=== PATIENT | female | born 1945 | race Caucasian/White ===

== ENCOUNTER 2019-10-24 16:05 | Outpatient (CLI) | payer OTHER, SELFPAY | END 2019-10-24 16:06 | disposition home or self-care (01) | PROVIDERS: PCP Emergency Medicine; Visit Provider Emergency Medicine | DX: R61 Generalized hyperhidrosis (principal) | CPT/HCPCS: 36415; 84443 ==

== ENCOUNTER 2020-03-13 15:13 | Emergency (ER) | payer OTHER, SELFPAY ==
--- NOTE | 2020-03-13 15:24 | ED.FEMALEGU ---
HPI - Female Genitourinary General Chief complaint: Urogenital-Female Stated complaint: UTI Time Seen by Provider: 03/13/20 15:25 Source: patient and RN notes reviewed Mode of arrival: ambulatory Limitations: no limitations History of Present Illness HPI Narrative: 75-year-old female presents with concern for possible urinary tract infection. Reports symptoms started overnight with dysuria, frequency, urgency, low back discomfort. She denies fever, abdominal pain, nausea, vomiting. Denies any intervention. MD elicited complaint: UTI Related Data Home Medications Medication Instructions Recorded Confirmed cholecalciferol (vitamin D3) 50 2,000 unit PO DAILY 06/07/19 mcg (2,000 unit) capsule valacyclovir 500 mg tablet 500 mg PO BID tablet 06/07/19 albuterol sulfate 90 mcg/actuation See Rx Instructions .ROUTE 10/22/19 aerosol inhaler .COMPLEX gm fluticasone propion-salmeterol INHALATION 03/13/20 [Wixela Inhub] Allergies Allergy/AdvReac Type Severity Reaction Status Date / Time Sulfa (Sulfonamide Allergy Unknown Verified 04/07/17 10:46 Antibiotics) Review of Systems Review of Systems: Narrative: CONSTITUTIONAL: Denies malaise, chills, sweats, or fever. CARDIOVASCULAR: Denies chest pain, palpitations, or edema. RESPIRATORY: Denies cough or dyspnea. GASTROINTESTINAL: Denies abdominal pain, nausea, vomiting, diarrhea, bloody, or mucous stools. GENITOURINARY: Reports dysuria frequency, urgency. Denies hematuria. MUSCULOSKELETAL: Reports low back pain. Denies myalgia. All systems reviewed & are unremarkable except as noted in HPI and below PMFSH Past Medical History Medical History (Updated 03/13/20 @ 15:37 by Katty Munoz NP) COPD (chronic obstructive pulmonary disease) GERD (gastroesophageal reflux disease) HLD (hyperlipidemia) Family History Family History Mother Cerebrovascular accident, Onset Age: 93 Sibling Malignant neoplasm of prostate Father Family history of diabetes mellitus in first degree relative, Onset Age: 76 Social History Social History Smoking status: Never smoker Alcohol intake: current Comments At time of signature, agree with nursing past medical, surgical, social and family history. There is no relevant family history pertinent to the presenting complaint Exam Narrative: Exam Narrative: GENERAL: Well-appearing, well-nourished, and in no acute distress. HEAD: Normocephalic. EYES: PERRLA, conjunctivae clear. NECK: Supple. No lymphadenopathy CHEST: Clear to auscultation. No respiratory distress. HEART: Regular rate and rhythm. No murmur heard. Normal peripheral pulses. ABDOMEN: Soft, nontender upon palpation, nondistended, normal active bowel sounds, no palpable or pulsatile masses, no guarding. No CVA tenderness SKIN: Warm, dry, no rash. NEURO: Alert and oriented x3. PSYCH: Normal mood and affect Course Course Emergency Course: Patient is aware of diagnosis, understands and agrees to treatment plan. Anticipatory guidance given. Patient agrees to follow-up as directed and is aware of reasons to seek care at the emergency department. Portions of this record may have been created with voice recognition software Vital Signs Vital signs: Vital Signs Temperature 97.9 F 03/13/20 15:25 Pulse Rate 82 03/13/20 15:25 Respiratory Rate 18 03/13/20 15:25 Blood Pressure 150/92 H 03/13/20 15:25 Pulse Oximetry 97 03/13/20 15:25 Temperature 97.9 F 03/13/20 15:25 Pulse Rate 82 03/13/20 15:25 Respiratory Rate 18 03/13/20 15:25 Blood Pressure 150/92 H 03/13/20 15:25 Pulse Oximetry 97 03/13/20 15:25 Reviewed. MDM - Female Genitourinary MDM Narrative Medical decision making narrative: Exam findings and UA show no acute concerns or changes; patient is non-toxic appearing and is in no di
[2020-03-13 15:25] VITALS: BP 150/92; PULSE 82; RESP 18; TEMP 36.6; O2SAT 97
== END 2020-03-13 15:45 | disposition home or self-care (01) ==
PROVIDERS: Emergency Provider Nurse Practitioner; PCP Emergency Medicine
DX: R30.0 Dysuria (principal); R35.0 Frequency of micturition; R39.15 Urgency of urination; J44.9 Chronic obstructive pulmonary disease, unspecified; K21.9 Gastro-esophageal reflux disease without esophagitis; E78.5 Hyperlipidemia, unspecified
CPT/HCPCS: 81003; 87077; 87086; 87088; 87186; 99213; G0463

== ENCOUNTER 2020-07-08 08:56 | Outpatient (CLI) | payer OTHER, SELFPAY ==
--- NOTE | ~2020-07-08 | DEXA_ITS ---
Bone Density Report Name: Linsey Quinn Age: 75 Sex: Female Ethnicity: White Date of : 1945 Indication: postmenopausal; parental hip fracture; height loss; asthma or emphysema; hysterectomy; Referring Provider: RO FALK Study: Bone densitometry was performed. Exam Date: July 08, 2020 Accession number: [id number] Bone Density: Region BMD T-score Z-score Classification AP Spine (L1-L4) 0.944 -0.9 1.6 Normal Femoral Neck (Left) 0.648 -1.8 0.4 Osteopenia Total Hip (Left) 0.825 -1.0 1.0 Normal Total Hip Bilateral Avg 0.828 -0.9 1.0 Normal Femoral Neck (Right) 0.627 -2.0 0.2 Osteopenia Total Hip (Right) 0.830 -0.9 1.0 Normal World Health Organization criteria for BMD impression classify patients as: Normal (T-score at or above -1.0), Osteopenia (T-score between -1.0 and -2.5), or Osteoporosis (T-score at or below -2.5). 10-year Fracture Risk(1): Major Osteoporotic Fracture 24% Hip Fracture 14% Reported Risk Factors: [place] (), Neck BMD=0.627, BMI=33.3, parental fracture (1) FRAX(R) Version 3.08. Fracture probability calculated for an untreated patient. Fracture probability may be lower if the patient has received treatment. Clinical Information Provided by Patient: Parent has had a hip fracture Has used the following medications: Vitamin D Has the following medical conditions: Asthma or Emphysema, Hysterectomy Patient maximum height was 65.5 Menopause Age: 48 Does not regularly consume dairy products Onset of menses at age 10 Number of children 3 Impression: The patient has low bone mass, based on the Right Femoral Neck T-score. The patient has an estimated ten-year risk of hip fracture of 14% and an estimated ten-year risk of major fracture of 24%, based on the WHO FRAX algorithm. The patient has risk factors, including: parental hip fracture. Discussion: BONE DENSITY IS LOW AT ONE OR MORE SKELETAL SITES. THE PATIENT'S BMD AND CLINICAL RISK FACTORS CONTRIBUTE TO THIS PATIENT'S HIGH RISK OF FRACTURE. This patient's lowest T-score is low at one or more skeletal sites. It meets the World Health Organization's (WHO) criteria for ?low bone mass? (T-score between -1.0 and -2.5). The patient's 10-year risk of hip fracture and 10 year risk of a major osteoporotic fracture as calculated by FRAX exceeds the threshold where pharmacological therapy is recommended by the National Osteoporosis Foundation (NOF). However, all treatment decisions require clinical judgment and consideration of individual patient factors, including patient preferences, comorbidities, previous drug use, risk factors not captured in the FRAX model (e.g., frailty, falls, vitamin D deficiency, increased bone turnover, interval significant decline in bone density) and possible under or overestimation of fracture ris
== END 2020-07-08 08:57 | disposition home or self-care (01) ==
LOC: ANHIMG 08:57
PROVIDERS: PCP Emergency Medicine; Visit Provider Emergency Medicine
DX: N95.9 Unspecified menopausal and perimenopausal disorder (principal); Z78.0 Asymptomatic menopausal state; M85.852 Other specified disorders of bone density and structure, left thigh; M85.851 Other specified disorders of bone density and structure, right thigh
CPT/HCPCS: 77080

== ENCOUNTER 2020-07-17 08:17 | Outpatient (CLI) | payer OTHER, SELFPAY ==
--- NOTE | ~2020-07-17 | MM_ITS ---
EXAMINATION: MM screening [facility] w dylan HISTORY: Screening mammogram TECHNIQUE: Craniocaudal and mediolateral oblique 3-D tomosynthesis images were obtained and synthetic 2-D images were generated. CAD analysis was submitted and interpreted. COMPARISON: 12/13/2016 diagnostic right digital mammogram and limited right breast ultrasound 11/15/2016, 07/29/2014 bilateral digital screening mammogram examinations BREAST PARENCHYMAL COMPOSITION: There are scattered areas of fibroglandular density. FINDINGS: There is no evidence of suspicious mass, calcification, or architectural distortion to sugg est malignancy in either breast. There has been no suspicious interval change. IMPRESSION: 1. No mammographic evidence of malignancy. 2. Recommend routine screening mammography in one year. BI-RADS Category 1: Negative Reviewed, dictated and finalized at location A. [facility] OFFICE MANAGER
== END 2020-07-17 08:18 | disposition home or self-care (01) ==
LOC: ANHIMG 08:19
PROVIDERS: PCP Emergency Medicine; Visit Provider Emergency Medicine
DX: Z12.31 Encounter for screening mammogram for malignant neoplasm of breast (principal)
CPT/HCPCS: 77063; 77067

== ENCOUNTER 2021-02-24 13:43 | Emergency (ER) | payer OTHER, SELFPAY ==
[2021-02-24 13:56] VITALS: BP 141/79; PULSE 80; RESP 16; TEMP 36.4; O2SAT 97
--- NOTE | 2021-02-24 15:28 | ED.URI ---
HPI - URI/Sore Throat General Chief Complaint: Upper Respiratory Infection Stated Complaint: COUGH Source: patient and RN notes reviewed Limitations: no limitations History of Present Illness HPI Narrative: The vaccinated patient, a non-smoker/nondrinke several meds including for COPD/RAD, presents with a 1 week history of scant cough associated with mild intermittent, somewhat positional wheezing. No fever, earache, sputum changes, sore throat, calf pain/edema; no loss of taste/smell, CP, vomiting/diarrhea, SOB. Her baseline inhaler use is typically weekly or less, no recent hospitalizations or steroids; symptoms are mild worse at night. Related Data Home Medications Medication Instructions Recorded Confirmed cholecalciferol (vitamin D3) 50 2,000 unit PO DAILY 06/07/19 01/28/21 mcg (2,000 unit) capsule albuterol sulfate 90 mcg/actuation See Rx Instructions .ROUTE 10/22/19 01/28/21 aerosol inhaler .COMPLEX gm cyclosporine [Restasis] drp 02/24/21 doxycycline hyclate 02/24/21 fluticasone propion-salmeterol INHALATION 02/24/21 [Wixela Inhub] spironolactone 02/24/21 Allergies Allergy/AdvReac Type Severity Reaction Status Date / Time Sulfa (Sulfonamide Allergy Unknown unknown Verified 01/28/21 10:48 Antibiotics) Review of Systems Review of Systems: General/Constitutional: No weight loss,fever Eyes: N0: Redness,discharge Ears/Nose/Throat: No: Epistaxis,ear discharge Respiratory: Denies: Hemoptysis Gastrointestinal: No Vomiting, Bleeding-rectal Skin: No Lumps, eruption Neurologic: No Focal Weakness,Sz Hematologic: Denies: Petechiae/Purpura Psychiatric: No: Suicida ideationl All Other Systems: Reviewed and Negative [facility] Past Medical History Medical History (Updated 02/24/21 @ 15:31 by Suleiman Jarrell MD) COPD (chronic obstructive pulmonary disease) GERD (gastroesophageal reflux disease) HLD (hyperlipidemia) Family History Family History Mother Cerebrovascular accident, Onset Age: 93 Sibling Malignant neoplasm of prostate Father Family history of diabetes mellitus in first degree relative, Onset Age: 76 Social History Social History Smoking status: Never smoker Alcohol intake: current Exam Narrative: General Appearance: Well appearing, Well nourished EYE: PERRLA, Conjunctiva clear Ears: Auditory canal normal, TM normal Nose: Rhinorrhea, Mucousal erythema Mouth/Throat: MM moist, Uvula midline, Pharyngeal erythema Neck: Supple, No adenopathy Respiratory: No respiratory distress, BS equal decreased at bases, mostly CTA with fine expiratory wheezing on forced expiration Cardiovascular: RRR, No JVD Musculoskeletal: Non tender, Normal strength Skin: Warm, Dry Neurological: A&O x3, CN II-XII intact Psychiatric: Normal mood, Normal affect Course Vital Signs Vital signs: Vital Signs Temperature 97.6 F 02/24/21 13:56 Pulse Rate 80 02/24/21 13:56 Respiratory Rate 16 02/24/21 13:56 Blood Pressure 141/79 H 02/24/21 13:56 Pulse Oximetry 97 02/24/21 13:56 Temperature 97.6 F 02/24/21 13:56 Pulse Rate 80 02/24/21 13:56 Respiratory Rate 16 02/24/21 13:56 Blood Pressure 141/79 H 02/24/21 13:56 Pulse Oximetry 97 02/24/21 13:56 MDM - URI/Sore Throat Lab Data Labs: Lab Results 02/24/21 Range/Units 14:40 POC SARS CoV-2 Ag Negative (Negative) Discharge Plan Discharge Clinical Impression: Upper respiratory infection Patient Disposition: Home, Self-Care Condition: Stable Prescriptions: New codeine-guaifenesin 10-100 mg/5 mL liquid 7.5 ml PO Q6H PRN (Reason: cough) Qty: 118 RF: 0 cefuroxime axetil 500 mg tablet 500 mg PO Q12H Qty: 14 RF: 0 prednisone 20 mg tablet 60 mg PO DAILY Qty: 9 RF: 0 albuterol sulfate [Ventolin HFA] 90 mcg/actuation
== END 2021-02-24 15:40 | disposition home or self-care (01) ==
PROVIDERS: Emergency Provider Emergency Medicine; PCP Emergency Medicine
DX: J06.9 Acute upper respiratory infection, unspecified (principal); Z20.822 Contact with and (suspected) exposure to COVID-19; J44.9 Chronic obstructive pulmonary disease, unspecified; K21.9 Gastro-esophageal reflux disease without esophagitis; E78.5 Hyperlipidemia, unspecified
CPT/HCPCS: 87426; 99213; C9803; G0463

== ENCOUNTER 2021-09-01 15:27 | Outpatient (CLI) | payer OTHER, SELFPAY ==
--- NOTE | ~2021-09-01 | MM_ITS ---
EXAMINATION: MM screening [facility] BI w dylan HISTORY: Screening mammogram TECHNIQUE: Craniocaudal and mediolateral oblique 3-D tomosynthesis images were obtained and synthetic 2-D images were generated. CAD analysis was submitted and interpreted. COMPARISON: 07/17/2020, 12/13/2016, 11/15/2016, 07/29/2014 BREAST PARENCHYMAL COMPOSITION: There are scattered areas of fibroglandular density. FINDINGS: There is no suspicious mass, calcification, or architectural distortion to suggest malignan cy in either breast. There has been no suspicious interval change. IMPRESSION: 1. No mammographic evidence of malignancy. 2. Recommend routine screening mammography in one year. BI-RADS Category 1: Negative Reviewed, dictated and finalized at location A.
== END 2021-09-01 15:28 | disposition home or self-care (01) ==
LOC: ANHIMG 15:28
PROVIDERS: PCP Emergency Medicine; Visit Provider Emergency Medicine
DX: Z12.31 Encounter for screening mammogram for malignant neoplasm of breast (principal)
CPT/HCPCS: 77063; 77067

== ENCOUNTER 2021-12-08 02:07 | Day surgery (SDC) | payer OTHER, SELFPAY ==
[2021-11-23 14:43] VITALS: BMI 31.6
[2021-12-08 09:12] VITALS: BP 153/78; PULSE 68; RESP 18; TEMP 36.3; O2SAT 94
[2021-12-08] MEDS: LACTATED RINGERS 1,000 ML 150 ML IV CONT (09:22)
--- NOTE | 2021-12-08 09:38 | WPDANESEPPF ---
Anes - Initial Pre Proc Eval Procedure: Operation Date: 12/08/21 10:30 Proposed Procedures p Colonoscopy - Minor Coronado MD Date/Time: 12/08/21 09:38 Surgeon: Minor Coronado MD Pre Op Diagnosis: gastroenteritis colitis Patient Data Age: 76 Gender: F Height: 1.6 m Weight: 81 kg Last Vital Signs Temp 97.4 F L 12/08/21 09:12 Pulse 68 12/08/21 09:12 Resp 18 12/08/21 09:12 BP 153/78 H 12/08/21 09:12 Pulse Ox 94 12/08/21 09:12 O2 Del Method Room Air 12/08/21 09:12 Allergies Allergy/AdvReac Type Severity Reaction Status Date / Time Sulfa (Sulfonamide Allergy Unknown unknown Verified 12/08/21 09:11 Antibiotics) Home Medications Medication Instructions Recorded Confirmed Type fluticasone 250 mcg-salmeterol 50 See Rx Instructions .Route 02/23/21 12/08/21 Rx mcg/dose blistr powdr for .COMPLEX ##180 inhalation (Wixela Inhub) albuterol sulfate 90 mcg/actuation 2 puff inhalation QID PRN 02/24/21 12/08/21 Rx aerosol inhaler (Ventolin HFA) shortness of breath or wheezing #8.5 grams fluticasone propionate 50 See Rx Instructions .Route 07/13/21 12/08/21 Rx mcg/actuation nasal .COMPLEX #16 mL spray,suspension sertraline 50 mg tablet (Zoloft) 50 mg PO DAILY #90 tabs 10/02/21 12/08/21 Rx valacyclovir 500 mg tablet See Rx Instructions .Route 10/12/21 12/08/21 Rx .COMPLEX #180 tabs famotidine 40 mg tablet (Pepcid) 40 mg PO DAILY #90 tabs 10/14/21 12/08/21 Rx sodium sul 1.479 gram-potas ch See Rx Instructions PO PER PKG DIR 10/16/21 12/08/21 Rx 0.188 gram-magnes sul 0.225 gram #24 tabs tablet (Sutab) alprazolam 0.5 mg tablet (Xanax) 0.5 mg PO HS 06/20/22 07/05/22 History atorvastatin 10 mg tablet 10 mg PO DAILY 11/23/21 12/08/21 History loperamide 2 mg capsule 2 mg PO PRN PRN Diarrhea 11/23/21 12/08/21 History Patient hx anesthesia problems: none Family hx anesthesia problems: none Results Review: All pre-operative results and documents have been reviewed as part of the pre-operative evaluation. [facility] Past Medical History Medical History COPD (chronic obstructive pulmonary disease) GERD (gastroesophageal reflux disease) HLD (hyperlipidemia) Family History Family History Mother Cerebrovascular accident, Onset Age: 93 Sibling Malignant neoplasm of prostate Father Family history of diabetes mellitus in first degree relative, Onset Age: 76 Social History Social History Smoking status: Never smoker Alcohol intake: current Substance use: never Substance use type: does not use Living arrangements: with family Spiritual care concerns: No Anes - Eval Final PreProcedure Day of Procedure 12/08/21 09:38 Patient weight: obese Heart: regular rate and rhythm Lungs: clear to auscultation Airway: Mallampati scale class II Neurological: alert and oriented Last oral intake: >/= 8 hours ASA classification: III Emergent: no Anesthetic plan: proceed Anesthesia type and monitoring: general GIVS and standard monitoring Results Review: All pre-operative results and documents have been reviewed as part of the pre-operative evaluation. Informed Consent: The patient's anesthetic plan and its attendant risks and benefits were discussed with the patient/family/POA. Questions were solicited and answers provided to the satisfaction of the patient/family/POA.
--- NOTE | 2021-12-08 09:51 | PM.HPGS ---
History of Present Illness History of Present Illness Consent: Risks, benefits, and alternatives have been discussed and questions answered. Patient agrees to proceed with procedure. Chief complaint: gastroenteritis colitis Narrative: Linsey Quinn is a 76 year old female with intermittent diarrhea for over a year, sometimes has to take imodium otherwise can not leave her house. Last colonoscopy 10 years ago and was normal. Stool studies negative for infection. Review of Systems Constitutional: Constitutional: Denies headache(s) and Denies weakness Eyes: Eyes: Denies blurry vision ENT: Reports Normal hearing present, Denies headache(s) and Denies neck pain Cardiovascular: Cardiovascular: Denies chest pain and Denies dyspnea Respiratory: Respiratory: Denies dyspnea Gastrointestinal: Gastrointestinal: Reports no additional gastrointestinal complaints Genitourinary: Genitourinary: Denies dysuria Musculoskeletal: Musculoskeletal: Denies neck pain Integumentary/Breasts: Skin/Breast: Denies dry skin Neurologic: Reports Normal hearing present, Denies headache(s) and Denies weakness Psychiatric: Psychiatric: Denies anxiety Endocrine: Endocrine: Denies change in body appearance Hematologic/Lymphatic: Hematologic/Lymphatic: Denies easy bleeding Allergic/Immunologic: Allergic/Immunologic: Denies urticaria PMFSH Past Medical History Medical History (Updated 12/08/21 @ 09:52 by Minor Coronado MD) Chronic diarrhea COPD (chronic obstructive pulmonary disease) GERD (gastroesophageal reflux disease) HLD (hyperlipidemia) Family History Family History Mother Cerebrovascular accident, Onset Age: 93 Sibling Malignant neoplasm of prostate Father Family history of diabetes mellitus in first degree relative, Onset Age: 76 Social History Social History Smoking status: Never smoker Alcohol intake: current Substance use: never Substance use type: does not use Living arrangements: with family Spiritual care concerns: No Meds Home Medications and Allergies Home Medications Medication Instructions Recorded Confirmed Type fluticasone 250 mcg-salmeterol 50 See Rx Instructions .Route 02/23/21 12/08/21 Rx mcg/dose blistr powdr for .COMPLEX ##180 inhalation (Wixela Inhub) albuterol sulfate 90 mcg/actuation 2 puff inhalation QID PRN 02/24/21 12/08/21 Rx aerosol inhaler (Ventolin HFA) shortness of breath or wheezing #8.5 grams fluticasone propionate 50 See Rx Instructions .Route 07/13/21 12/08/21 Rx mcg/actuation nasal .COMPLEX #16 mL spray,suspension sertraline 50 mg tablet (Zoloft) 50 mg PO DAILY #90 tabs 10/02/21 12/08/21 Rx valacyclovir 500 mg tablet See Rx Instructions .Route 10/12/21 12/08/21 Rx .COMPLEX #180 tabs famotidine 40 mg tablet (Pepcid) 40 mg PO DAILY #90 tabs 10/14/21 12/08/21 Rx sodium sul 1.479 gram-potas ch See Rx Instructions PO PER PKG DIR 10/16/21 12/08/21 Rx 0.188 gram-magnes sul 0.225 gram #24 tabs tablet (Sutab) alprazolam 0.5 mg tablet (Xanax) 0.5 mg PO HS 11/23/21 12/08/21 History atorvastatin 10 mg tablet 10 mg PO DAILY 11/23/21 12/08/21 History loperamide 2 mg capsule 2 mg PO PRN PRN Diarrhea 11/23/21 12/08/21 History Allergies Allergy/AdvReac Type Severity Reaction Status Date / Time Sulfa (Sulfonamide Allergy Unknown unknown Verified 12/08/21 09:11 Antibiotics) Vital Signs Vital Signs - 24 hr 12/08/21 09:12 Temperature 97.4 F L Pulse Rate 68 Respiratory Rate 18 Blood Pressure 153/78 H Pulse Oximetry 94 Oxygen Delivery Room Air Exam Const: General: comfortable and no acute distress HENMT: General nose exam: Normal nares present Eyes: General: appearance normal, both eyes and all related structures Neck: Neck: no JVD Resp: Auscultation: clear to ausculta
--- NOTE | 2021-12-08 09:56 | SUR.OPER ---
Left eye is red and appears irritated, pt reports she got soap in it the night prior.
[2021-12-08 10:12] VITALS: BP 140/77; PULSE 59; RESP 19; O2SAT 99
[2021-12-08 10:22] VITALS: BP 144/71; PULSE 56; RESP 19; O2SAT 98
[2021-12-08 10:32] VITALS: BP 147/76; PULSE 55; RESP 16; O2SAT 100
== END 2021-12-08 10:45 | disposition home or self-care (01) ==
PROVIDERS: PCP Emergency Medicine; Visit Provider Internal Medicine Gastroenterology
PROC: 0DJD8ZZ Inspection of Lower Intestinal Tract, Via Natural or Artificial Opening Endoscopic (ICD-10-PCS; CPT 45378; principal; 2021-12-08 10:30)
DX: Z12.11 Encounter for screening for malignant neoplasm of colon (principal); R19.7 Diarrhea, unspecified; K57.30 Diverticulosis of large intestine without perforation or abscess without bleeding; J44.9 Chronic obstructive pulmonary disease, unspecified; E78.5 Hyperlipidemia, unspecified; K21.9 Gastro-esophageal reflux disease without esophagitis; Z79.51 Long term (current) use of inhaled steroids
CPT/HCPCS: 45380; 88305; J2704; J7120

== ENCOUNTER 2021-12-12 12:05 | Emergency (ER) | payer OTHER, SELFPAY ==
[2021-12-12 12:44] VITALS: BP 115/78; PULSE 70; RESP 20; TEMP 36.6; O2SAT 99
--- NOTE | 2021-12-12 12:48 | ED.GENADULT ---
HPI - General Adult General Chief complaint: Eye Problems Stated complaint: Steven Su Time Seen by Provider: 12/12/21 12:48 Source: patient Mode of arrival: ambulatory Limitations: no limitations History of Present Illness HPI narrative: 76-year-old female patient presents to the [facility] with complaints of left eye irritation for the past week. Patient states that she got some shampoo in her eye about a week ago and thought that it would resolve on its own but every day it is gotten a little bit worse and continues to have some clear to yellow drainage, itching and irritation left eye as well as blurred vision. Denies wearing any contacts or any foreign bodies to the eye that she is aware of. Related Data Home Medications Medication Instructions Recorded Confirmed alprazolam 0.5 mg tablet (Xanax) 0.5 mg PO HS 11/23/21 12/08/21 atorvastatin 10 mg tablet 10 mg PO DAILY 11/23/21 12/08/21 loperamide 2 mg capsule 2 mg PO PRN PRN Diarrhea 11/23/21 12/08/21 Allergies Allergy/AdvReac Type Severity Reaction Status Date / Time Sulfa (Sulfonamide Allergy Unknown unknown Verified 12/08/21 09:11 Antibiotics) Review of Systems Review of Systems: CONSTITUTIONAL: Denies fever, chills, or sweats. EYES: Positive left eye visual changes, redness, and discharge x1 week ENT: Denies rhinorrhea, congestion, sore throat, or otalgia. CARDIOVASCULAR: Denies chest pain, palpitations, or edema. RESPIRATORY: Denies cough or dyspnea. GASTROINTESTINAL: Denies abdominal pain, nausea, vomiting, or diarrhea. GENITOURINARY: Denies dysuria or hematuria. SKIN: Denies rash or itching. MUSCULOSKELETAL: Denies back pain, joint pain, or myalgia. NEUROLOGIC: Denies headache, numbness, or weakness. PSYCHIATRIC: Denies anxiety or depression. [facility] Past Medical History Medical History Chronic diarrhea COPD (chronic obstructive pulmonary disease) GERD (gastroesophageal reflux disease) HLD (hyperlipidemia) Family History Family History Mother Cerebrovascular accident, Onset Age: 93 Sibling Malignant neoplasm of prostate Father Family history of diabetes mellitus in first degree relative, Onset Age: 76 Social History Social History Smoking status: Never smoker Alcohol intake: current Substance use: never Substance use type: does not use Spiritual care concerns: No Comments At the time of my signature I agree with nursing past medical history, surgical, social, and family history. There is no relevant family history pertinent to the presenting complaint. Exam Narrative: GENERAL: Well-appearing, well-nourished, and in no acute distress. HEAD: Normocephalic, atraumatic. EYES: PERRLA and EOMI. patient does have erythema noted to the sclera of the left eye. No periorbital swelling, warmth or present. Patient does have slight clear discharge noted with dried matting to the lashes. ENT: Nares clear, no rhinorrhea or epistaxis. Mucous membranes moist. NECK: Supple. No lymphadenopathy CHEST: Clear to auscultation. No respiratory distress. HEART: Regular rate and rhythm. No murmur heard. Normal peripheral pulses. ABDOMEN: Soft, nontender, nondistended, normal active bowel sounds. EXTREMITIES: Normal range of motion. No edema. SKIN: Warm, dry, no rash. NEURO: No focal deficits. Alert and oriented x3. Course Course Level of Care: Express Care Visit Vital Signs Vital signs: Vital Signs Temperature 36.6 C 12/12/21 12:44 Pulse Rate 70 12/12/21 12:44 Respiratory Rate 20 12/12/21 12:44 Blood Pressure 115/78 12/12/21 12:44 Pulse Oximetry 99 12/12/21 12:44 Oxygen Delivery Room Air 12/12/21 12:44 Temperature 36.6 C 12/12/21 12:44 Pulse Rate 70 12/12/21 12:44 Respiratory Rate 20 12/12/21 12:44 Blood Pressure
== END 2021-12-12 13:05 | disposition home or self-care (01) ==
PROVIDERS: Emergency Provider Nurse Practitioner Family; PCP Emergency Medicine
DX: H10.32 Unspecified acute conjunctivitis, left eye (principal); J44.9 Chronic obstructive pulmonary disease, unspecified; K21.9 Gastro-esophageal reflux disease without esophagitis; E78.5 Hyperlipidemia, unspecified
CPT/HCPCS: 99213; G0463

== ENCOUNTER 2022-01-03 06:42 | Emergency (ER) | payer OTHER, SELFPAY ==
[2022-01-03] VITALS (31 sets, daily range): BP systolic 142–189; BP diastolic 80–95; PULSE 58–93; RESP 9–20; TEMP 36.7; O2SAT 93–100
--- NOTE | ~2022-01-03 | XR_ITS ---
EXAMINATION: XR chest 1V portable DATE: 01/03/2022 08:03 INDICATION: Cough TECHNIQUE: frontal view of the chest was obtained. COMPARISON: None FINDINGS: Mild streaky opacities at the bilateral lung bases and favor atelectasis over pneumonia. No pulmonary edema, pleural effusion or pneumothorax. The cardiomediastinal silhouette is normal. IMPRESSION: 1. Mild streaky bibasilar atelectasis versus less likely pneumonia. Reviewed, dictated and finalized at location A.
[2022-01-03 06:58] LABS: Basophils Percent Auto 0.2 % (0.2-1.2); Eosinophils Percent Auto 0.2 % (0-4.4); Hematocrit 40.2 % (37.0-47.0); Hemoglobin 13.7 g/dL (12.0-15.0); Immature Granulocyte Absolute 0.05 K/mm3 (0.00-0.031); Immature Granulocyte Percent A 0.5 % (0-0.5); Lymphocytes Absolute Auto 2.83 K/mm3 (0.9-3.2); Lymphocytes Percent Auto 26.4 % (18.3-44.2); Mean Corpuscular HGB Conc 34.1 g/dl (32-36); Mean Corpuscular Hemoglobin 31.9 pg (26-34); Mean Corpuscular Volume 93.7 fl (80-100); Mean Platelet Volume 9.5 fl (7.4-10.4); Monocytes Absolute Auto 0.8 K/mm3 (0.1-0.6); Monocytes Percent Auto 7.7 % (2.6-8.5); Platelet Count Result 361 k/mm3 (150-375); Red Blood Count 4.29 M/mm3 (4.2-5.4); Red Cell Distribution Width 13.7 % (11.5-14.5); White Blood Count 10.7 K/mm3 (4.5-10.0)
[2022-01-03 07:08] LABS: Alanine Aminotransferase 38 U/L (6-35); Alkaline Phosphatase 99 U/L (38-126); Anion Gap 13 mmol/L (8-16); Aspartate Amino Transferase 29 U/L (14-36); Bilirubin,Total 0.5 mg/dL (0.2-1.3); Blood Urea Nitrogen 16 mg/dL (7-17); Calcium 9.3 mg/dL (8.4-10.2); Carbon Dioxide 27 mmol/L (22-30); Chloride 87 mmol/L (98-107); Estimated CRCL calculation 77 ml/min; Estimated Glomerular Filt Rate > 60; Glucose 145 mg/dL (65-110); Lipase 127 U/L (23-300); Potassium 4.3 mmol/L (3.4-5.0); Sodium 127 mmol/L (137-145)
--- NOTE | 2022-01-03 07:26 | ED.NAVMDI ---
HPI - Nausea/Vomiting/Diarrhea General Chief complaint: Nausea/Vomiting/Diarrhea Stated complaint: N/V Time Seen by Provider: 01/03/22 07:03 Source: RN notes reviewed History of Present Illness HPI Narrative: Patient presents emergency department from home for nausea and vomiting. Patient states that she was diagnosed with COVID-19 approximately 1 week ago. She states that she was placed on Paxlovid and took the medication with last dose on Tuesday she states that starting on Tuesday she began to feel bad again and subsequently yesterday developed nausea and vomiting she says she has had profuse nausea vomiting is been unable to keep anything down. She denies any fevers or chills chest pain shortness of breath or abdominal pain states she is not taking medication at home Related Data Home Medications Medication Instructions Recorded Confirmed atorvastatin 10 mg tablet 10 mg PO DAILY 11/23/21 12/08/21 loperamide 2 mg capsule 2 mg PO PRN PRN Diarrhea 11/23/21 12/08/21 Allergies Allergy/AdvReac Type Severity Reaction Status Date / Time Sulfa (Sulfonamide Allergy Unknown unknown Verified 01/03/22 06:49 Antibiotics) Review of Systems Review of Systems: Gen.: Denies fevers or chills reports COVID-19 ENT: Denies congestion Respiratory: Denies shortness of breath or cough CV: Denies chest pain or palpitations GI: See HPI Musculoskeletal: Denies back pain or muscle pain Neuro: Denies numbness, tingling, weakness or focal weakness Skin: Denies rash Except as documented, all other systems reviewed and negative [facility] Past Medical History Medical History Chronic diarrhea COPD (chronic obstructive pulmonary disease) GERD (gastroesophageal reflux disease) HLD (hyperlipidemia) Family History Family History Mother Cerebrovascular accident, Onset Age: 93 Sibling Malignant neoplasm of prostate Father Family history of diabetes mellitus in first degree relative, Onset Age: 76 Social History Social History Smoking status: Never smoker Alcohol intake: current Substance use: never Substance use type: does not use Spiritual care concerns: No Exam Narrative: APPEARANCE: No acute distress, nontoxic, resting in bed EYES: EOMI HEENT: Normocephalic, atraumatic, OMM RESPIRATORY: No respiratory distress Clear to auscultation bilaterally with no rhonchi wheezing or rales. CARDIOVASCULAR: Regular rate and rhythm without murmurs rubs or gallops. ABDOMINAL: Soft, nontender, nondistended, no rebound or guarding MUSCULOSKELETAl: Moves all extremities. No clubbing, cyanosis or edema. NEURO: Awake and alert. Following commands, speech normal, no focal deficits SKIN:: Warm, dry. No rashes lesions or abrasions PSYCHIATRIC: Normal affect/mood, Course Course Emergency Course: Patient states she is feeling much better at this time able to eat and drink Discussed with patient results of workup and diagnosis. Discussed need for follow-up with primary care, proper use of medication, and reasons to return to the emergency department. Patient understands and agrees to current treatment plan Vital Signs Vital signs: Vital Signs Temperature 98.1 F 01/03/22 06:46 Pulse Rate 68 01/03/22 06:46 Respiratory Rate 16 01/03/22 06:46 Blood Pressure 189/94 H 01/03/22 06:46 Pulse Oximetry 97 01/03/22 06:46 Oxygen Delivery Room Air 01/03/22 06:46 Temperature 98.1 F 01/03/22 06:46 Pulse Rate 68 01/03/22 06:46 Respiratory Rate 16 01/03/22 06:46 Blood Pressure 189/94 H 01/03/22 06:46 Pulse Oximetry 97 01/03/22 06:46 Oxygen Delivery Room Air 01/03/22 06:46 MDM - Nausea/Vomiting/Diarrhea Lab Data Result diagrams: 01/03/22 06:52 01/03/22 06:52 Labs: Lab Results 0
[2022-01-03 07:31] LABS: Appearance Urine Slightly Cloudy (Clear); Bilirubin Urine Negative (Negative); Blood Urine Negative (Negative); Color Urine Yellow (Yellow); Glucose Urine UA Negative (Negative); Ketones Urine Negative (Negative); Leukocyte Esterase Ur Negative LEU/UL (Negative); Nitrate Urine Negative (Negative); Protein Urine 2+ mg/dL (Negative); Specific Grav Ur 1.025 (1.001-1.035); Urobilinogen Urine 0.2 mg/dL (<2.0)
[2022-01-03 07:36] LABS: Bacteria Urine Trace /hpf; Mucus Urine Heavy /lpf; RBC Urine 0-2 /hpf (0-2); Squamous Epithelial Cell Urine Occasional /hpf (Few); WBC Urine 0-3 /hpf
[2022-01-03 07:54] LABS: Add Urine Microscopic? YES
[2022-01-03] MEDS: SODIUM CHLORIDE 0.9% IV 1,000 ML 999 ML IV CONT (08:05)
[2022-01-03] MEDS: FAMOTIDINE 20 MG/2 ML VIAL IV PUSH (08:05)
[2022-01-03] MEDS: ONDANSETRON INJ 4 MG/2 ML VIAL IV PUSH ×2 (08:05→10:08)
== END 2022-01-03 10:45 | disposition home or self-care (01) ==
PROVIDERS: Emergency Medicine; Emergency Provider Emergency Medicine; PCP Emergency Medicine
DX: U07.1 COVID-19 (principal); R11.2 Nausea with vomiting, unspecified; J44.9 Chronic obstructive pulmonary disease, unspecified; K21.9 Gastro-esophageal reflux disease without esophagitis; E78.5 Hyperlipidemia, unspecified; K52.9 Noninfective gastroenteritis and colitis, unspecified
CPT/HCPCS: 36415; 71045; 80053; 81001; 83690; 85025; 96365; 96375; 96376; 99284; J0131; J2405; J7030

== ENCOUNTER 2022-11-08 11:33 | Emergency (ER) | payer OTHER, SELFPAY ==
[2022-11-08 11:46] VITALS: BP 142/65; PULSE 71; RESP 12; TEMP 37.3; O2SAT 96
--- NOTE | 2022-11-08 11:59 | ED.FEMALEGU ---
HPI - Female Genitourinary General Chief complaint: Urogenital-Female Stated complaint: UTI infection Time Seen by Provider: 11/08/22 11:50 Source: patient Mode of arrival: ambulatory Limitations: no limitations History of Present Illness HPI Narrative: Ms. Quinn is a 77-year-old female patient presenting to the clinic today with complaints possible urinary tract infection. She reports that she just got back from vacation and was and water and was wearing a wet suit for long time. States that she is having burning, frequency and urgency with urination. Also reports some low back pain and chills. She denies any fever. Related Data Home Medications Medication Instructions Recorded Confirmed loperamide 2 mg capsule 2 mg PO PRN PRN Diarrhea 11/23/21 11/08/22 Allergies Allergy/AdvReac Type Severity Reaction Status Date / Time Sulfa (Sulfonamide Allergy Unknown unknown Verified 11/08/22 11:50 Antibiotics) Review of Systems Review of Systems: Pertinent positives per HPI. Patient denies any fever, chills, rash, headache, visual changes, dizziness, cough, shortness of breath, chest pain, palpitations, nausea, vomiting, diarrhea, constipation, abdominal pain, PMFSH Past Medical History Medical History Chronic diarrhea COPD (chronic obstructive pulmonary disease) GERD (gastroesophageal reflux disease) HLD (hyperlipidemia) Family History Family History Mother Cerebrovascular accident, Onset Age: 93 Sibling Malignant neoplasm of prostate Father Family history of diabetes mellitus in first degree relative, Onset Age: 76 Social History Social History Smoking status: Never smoker Alcohol intake: current Substance use: never Substance use type: does not use Living arrangements: with family Spiritual care concerns: No Comments At the time of my signature, I reviewed and agree with the nursing past medical, surgical, social, and family history. There is no relevant family history pertinent to the patient complaint. Exam Narrative: General: Well-developed, well nourished, in no apparent distress. Head: Normocephalic, atraumatic. Cardio: Regular rate and rhythm, s1 and s2 normal, no murmur appreciated. Resp: Clear to auscultation bilaterally, no rhonchi, rales, wheezing or rubs. Abdomen: Soft, pliable, bowel sounds present in all quadrants, mild tender to palpation over the urinary bladder, no organomegly, no CVAT tenderness. Course Course Emergency Course: Portions of this record may have been created with voice recognition software. Level of Care: Express Care Visit Vital Signs Vital signs: Vital Signs Temperature 37.3 C 11/08/22 11:46 Pulse Rate 71 11/08/22 11:46 Respiratory Rate 12 11/08/22 11:46 Blood Pressure 142/65 H 11/08/22 11:46 Pulse Oximetry 96 11/08/22 11:46 Oxygen Delivery Room Air 11/08/22 11:46 Temperature 37.3 C 11/08/22 11:46 Pulse Rate 71 11/08/22 11:46 Respiratory Rate 12 11/08/22 11:46 Blood Pressure 142/65 H 11/08/22 11:46 Pulse Oximetry 96 11/08/22 11:46 Oxygen Delivery Room Air 11/08/22 11:46 Vital signs reviewed MDM - Female Genitourinary MDM Narrative Medical decision making narrative: At the time of visit patient is resting comfortably on the exam table. Patient did take azo last night so perhaps the urine dip test is skewed. Patient was positive for nitrates, leukocytes, blood, and protein. Send for culture. Will place patient on ciprofloxacin. Supportive measures were discussed with the patient she voiced understanding discharge instructions agrees to treatment plan. Differential Diagnosis Differential diagnosis: Likely urinary tract infection and cystitis Lab Data Labs: Uri
== END 2022-11-08 12:07 | disposition home or self-care (01) ==
PROVIDERS: Emergency Provider Nurse Practitioner Family; PCP Emergency Medicine
DX: N39.0 Urinary tract infection, site not specified (principal); J44.9 Chronic obstructive pulmonary disease, unspecified; K21.9 Gastro-esophageal reflux disease without esophagitis; E78.5 Hyperlipidemia, unspecified
CPT/HCPCS: 81003; 87077; 87086; 87186; 99213; G0463

== ENCOUNTER 2023-09-09 16:08 | Emergency (ER) | payer OTHER, SELFPAY ==
[2023-09-09 16:40] VITALS: BP 161/77; PULSE 62; RESP 14; TEMP 36.2; O2SAT 99
--- NOTE | 2023-09-09 17:07 | ED.EAR ---
HPI - Ear Problem General Chief complaint: Ear Stated complaint: left ear pain Time Seen by Provider: 09/09/23 17:07 Source: patient Mode of arrival: ambulatory Limitations: no limitations History of Present Illness HPI Narrative: 78-year-old female presents with complaint of pain to bilateral ears, decreased hearing worse to left ear. Patient states that she recently flew to and from [place]. Had pain to both ears on plane to [place] and from [place]. Pain to left ear worse on way home and that is when decreased hearing started. Notice blood to left ear canal yesterday. Called her primary care physician who contacted and Ear Nose and Throat office but states no one called her back today. Afebrile. All systems reviewed and negative except as noted above. Related Data Allergies Allergy/AdvReac Type Severity Reaction Status Date / Time Sulfa (Sulfonamide AdvReac Mild Nausea Verified 09/09/23 16:47 Antibiotics) Review of Systems Review of Systems: CONSTITUTIONAL: Denies fever, chills, or sweats. EYES: Denies visual changes, redness, or discharge. ENT: Denies rhinorrhea, congestion, sore throat . Bilateral ear pain with decreased hearing. CARDIOVASCULAR: Denies chest pain, palpitations, or edema. RESPIRATORY: Denies cough or dyspnea. GASTROINTESTINAL: Denies abdominal pain, nausea, vomiting, or diarrhea. GENITOURINARY: Denies dysuria or hematuria. SKIN: Denies rash or itching. MUSCULOSKELETAL: Denies back pain, joint pain, or myalgia. NEUROLOGIC: Denies headache, numbness, or weakness. PSYCHIATRIC: Denies anxiety or depression. All other systems reviewed are negative, except as documented in HPI. [facility] Past Medical History Medical History Chronic diarrhea COPD (chronic obstructive pulmonary disease) GERD (gastroesophageal reflux disease) HLD (hyperlipidemia) Family History Family History Mother Cerebrovascular accident, Onset Age: 93 Sibling Malignant neoplasm of prostate Father Family history of diabetes mellitus in first degree relative, Onset Age: 76 Social History Social History Smoking status: Never smoker Alcohol intake: current Substance use: never Substance use type: does not use Do You Feel Safe in your Home?: Yes Lack of Transportation: YES Lack of Food: Never True Current Housing: I Have Housing Concerned About Future Housing: No Difficulty Paying Gas/Electric Bills: No Difficulty Paying for Meds: No Currently Unemployed: No Education: Associate Degree Difficulty w/ Childcare or Family Care: No Living arrangements: with family Spiritual care concerns: No Comments At time of signature, agree with nursing past medical, surgical, social and family history. There is no relevant family history pertinent to the presenting complaint. Exam Narrative: GENERAL: This is a well-nourished, well-developed patient, in no apparent distress. HEAD: normocephalic, atraumatic. EYES: PERRL. Sclera clear/white. Vision is grossly intact. EARS: External ears normal, Bilateral ear canals are very narrow. Small amount of cerumen to right ear canal, unable to evaluate right TM. Possible perforation to left TM with yellowish drainage, blood to ear canal. NOSE: External nose normal NECK: Neck supple, non-tender without lymphadenopathy, masses or thyromegaly. CARDIOVASCULAR: Regular rate and rhythm without murmurs, gallops, or rubs. RESPIRATORY: Clear to auscultation. Breath sounds equal bilaterally. No wheezes, rales, or rhonchi. SKIN: warm, Dry, intact with no suspicious lesions or rash, good texture and turgor. NEURO: awake, alert, and oriented to person, place and time. There were no obvious focal neurologic abnormalities. EXTREMITIES: No joint tenderness, effusion, or edema
== END 2023-09-09 17:24 | disposition home or self-care (01) ==
PROVIDERS: Emergency Provider Nurse Practitioner Family; PCP Emergency Medicine
DX: H72.92 Unspecified perforation of tympanic membrane, left ear (principal); H61.21 Impacted cerumen, right ear; J44.9 Chronic obstructive pulmonary disease, unspecified; K21.9 Gastro-esophageal reflux disease without esophagitis; E78.5 Hyperlipidemia, unspecified
CPT/HCPCS: 99213; G0463

== ENCOUNTER 2023-12-07 03:17 | Day surgery (SDC) | payer OTHER, SELFPAY ==
[2023-11-29 13:56] VITALS: BMI 31.6
[2023-12-07 13:05] VITALS: BP 148/75; PULSE 71; RESP 16; TEMP 36.5; O2SAT 95
[2023-12-07] MEDS: LACTATED RINGERS 1,000 ML 150 ML IV CONT (13:16)
--- NOTE | 2023-12-07 14:02 | WPDANESEPPF ---
Anes - Initial Pre Proc Eval Procedure: Operation Date: 12/07/23 14:30 Proposed Procedures p Esophagogastroduodenoscopy - Minor Coronado MD Date/Time: 12/07/23 14:02 Surgeon: Minor Coronado MD Pre Op Diagnosis: Dysphagia, GERD Patient Data Age: 78 Gender: F Height: 1.65 m Weight: 85.1 kg Last Vital Signs Temp 97.7 F 12/07/23 13:05 Pulse 71 12/07/23 13:05 Resp 16 12/07/23 13:05 BP 148/75 H 12/07/23 13:05 Pulse Ox 95 12/07/23 13:05 O2 Del Method Room Air 12/07/23 13:05 Allergies Allergy/AdvReac Type Severity Reaction Status Date / Time Sulfa (Sulfonamide AdvReac Mild Nausea Verified 12/07/23 13:03 Antibiotics) Home Medications Medication Instructions Recorded Confirmed Type valacyclovir 500 mg tablet See Rx Instructions .Route 03/22/23 11/29/23 Rx .COMPLEX #180 tabs sertraline 50 mg tablet See Rx Instructions .Route 09/14/23 11/29/23 Rx .COMPLEX #90 tabs famotidine 40 mg tablet See Rx Instructions .Route 09/19/23 11/29/23 Rx .COMPLEX #90 tabs atorvastatin 10 mg tablet See Rx Instructions .Route 10/19/23 11/29/23 Rx .COMPLEX #90 tabs FiberWell 4 g PO HS 11/29/23 11/29/23 History albuterol sulfate 90 mcg/actuation See Rx Instructions .Route 11/29/23 11/29/23 History aerosol inhaler .COMPLEX PRN Shortness Of Breath Or Wheezing apple cider vinegar 1 gummy BYMOUTH QA 11/29/23 11/29/23 History biotin 5,000 mcg chewable tablet 5,000 mcg PO QAM 11/29/23 11/29/23 History calcium carbonate-vitamin D3 500 1 cap PO HS 11/29/23 11/29/23 History mg (1,250 mg)-50 unit capsule diphenhydramine 25 1 tablet PO 11/29/23 11/29/23 History mg-acetaminophen 500 mg tablet (Acetaminophen PM) fluticasone 250 mcg-salmeterol 50 See Rx Instructions .Route 11/29/23 11/29/23 History mcg/dose blistr powdr for .COMPLEX PRN Shortness Of Breath inhalation (Wixela Inhub) Or Wheezing fluticasone propionate 50 See Rx Instructions .Route 11/29/23 11/29/23 History mcg/actuation nasal .COMPLEX PRN allergies spray,suspension ibuprofen 200 mg tablet (Advil) 400 mg PO QAM 11/29/23 11/29/23 History magnesium oxide 420 mg tablet 420 mg PO HS 11/29/23 11/29/23 History melatonin 10 mg tablet 10 mg PO HS 11/29/23 11/29/23 History turmeric root-kelsey root ext 1 cap PO HS 11/29/23 11/29/23 History alprazolam 0.5 mg tablet (Xanax) 0.5 mg PO HS #30 tabs 12/01/23 Rx Patient hx anesthesia problems: none Family hx anesthesia problems: none Results Review: All pre-operative results and documents have been reviewed as part of the pre-operative evaluation. [facility] Past Medical History Medical History Acute cystitis without hematuria Acute recurrent frontal sinusitis Anxiety Cataract Chronic diarrhea COPD (chronic obstructive pulmonary disease) COVID-19 Dysuria Fatigue GERD (gastroesophageal reflux disease) HLD (hyperlipidemia) Hyperglycemia Mild intermittent asthma with exacerbation Otalgia of both ears Perforated ear drum Postmenopausal Rhinosinusitis Right ear impacted cerumen Sarcoidosis Sinus congestion URI with cough and congestion Vitamin D deficiency Surgical History Surgical History History of partial hysterectomy Family History Family History Mother Cerebrovascular accident, Onset Age: 93 Sibling Malignant neoplasm of prostate Father Family history of diabetes mellitus in first degree relative, Onset Age: 76 Social History Social History Smoking status: Never smoker Alcohol intake: current Substance use: never Substance use type: does not use Do You Feel Safe in your Home?: Yes Lack of Transportation: YES Lack of Food: Never True Current H
--- NOTE | 2023-12-07 14:03 | PM.HPGS ---
History of Present Illness History of Present Illness Consent: Risks, benefits, and alternatives have been discussed and questions answered. Patient agrees to proceed with procedure. Chief complaint: Dysphagia, GERD Narrative: Linsey Quinn is a 78 year old female with diarrhea- negative colonoscopy including random bx, normal calprotecin/elastase in stool, also normal serology for celiac. GERD is controlled with medication. Noted some discomfort in chest after eating Review of Systems Review of Systems: All systems reviewed & are unremarkable except as noted in HPI and below PMFSH Past Medical History Medical History Acute cystitis without hematuria Acute recurrent frontal sinusitis Anxiety Cataract Chronic diarrhea COPD (chronic obstructive pulmonary disease) COVID-19 Dysuria Fatigue GERD (gastroesophageal reflux disease) HLD (hyperlipidemia) Hyperglycemia Mild intermittent asthma with exacerbation Otalgia of both ears Perforated ear drum Postmenopausal Rhinosinusitis Right ear impacted cerumen Sarcoidosis Sinus congestion URI with cough and congestion Vitamin D deficiency Surgical History Surgical History History of partial hysterectomy Family History Family History Mother Cerebrovascular accident, Onset Age: 93 Sibling Malignant neoplasm of prostate Father Family history of diabetes mellitus in first degree relative, Onset Age: 76 Social History Social History Smoking status: Never smoker Alcohol intake: current Substance use: never Substance use type: does not use Do You Feel Safe in your Home?: Yes Lack of Transportation: YES Lack of Food: Never True Current Housing: I Have Housing Concerned About Future Housing: No Difficulty Paying Gas/Electric Bills: No Difficulty Paying for Meds: No Currently Unemployed: No Education: Associate Degree Difficulty w/ Childcare or Family Care: No Living arrangements: with family Spiritual care concerns: No Meds Home Medications and Allergies Home Medications Medication Instructions Recorded Confirmed Type valacyclovir 500 mg tablet See Rx Instructions .Route 03/22/23 11/29/23 Rx .COMPLEX #180 tabs sertraline 50 mg tablet See Rx Instructions .Route 09/14/23 11/29/23 Rx .COMPLEX #90 tabs famotidine 40 mg tablet See Rx Instructions .Route 09/19/23 11/29/23 Rx .COMPLEX #90 tabs atorvastatin 10 mg tablet See Rx Instructions .Route 10/19/23 11/29/23 Rx .COMPLEX #90 tabs FiberWell 4 g PO 11/29/23 11/29/23 History albuterol sulfate 90 mcg/actuation See Rx Instructions .Route 11/29/23 11/29/23 History aerosol inhaler .COMPLEX PRN Shortness Of Breath Or Wheezing apple cider vinegar 1 gummy BYMOUTH [facility] 11/29/23 11/29/23 History biotin 5,000 mcg chewable tablet 5,000 mcg PO [facility] 11/29/23 11/29/23 History calcium carbonate-vitamin D3 500 1 cap PO 11/29/23 11/29/23 History mg (1,250 mg)-50 unit capsule diphenhydramine 25 1 tablet PO 11/29/23 11/29/23 History mg-acetaminophen 500 mg tablet (Acetaminophen PM) fluticasone 250 mcg-salmeterol 50 See Rx Instructions .Route 11/29/23 11/29/23 History mcg/dose blistr powdr for .COMPLEX PRN Shortness Of Breath inhalation (Wixela Inhub) Or Wheezing fluticasone propionate 50 See Rx Instructions .Route 11/29/23 11/29/23 History mcg/actuation nasal .COMPLEX PRN allergies spray,suspension ibuprofen 200 mg tablet (Advil) 400 mg PO [facility] 11/29/23 11/29/23 History magnesium oxide 420 mg tablet 420 mg PO 11/29/23 11/29/23 History melatonin 10 mg tablet 10 mg PO 11/29/23 11/29/23 History turmeric root-kelsey root ext 1 cap PO 11/29/23 11/29/23 History alprazolam 0.5 mg tablet (
[2023-12-07 14:21] VITALS: BP 112/59; PULSE 58; RESP 25; O2SAT 97
[2023-12-07 14:31] VITALS: BP 130/60; PULSE 53; RESP 22; O2SAT 96
[2023-12-07 14:41] VITALS: BP 130/79; PULSE 57; RESP 19; O2SAT 98
== END 2023-12-07 14:54 | disposition home or self-care (01) ==
PROVIDERS: PCP Emergency Medicine; Referring Provider Nurse Practitioner; Visit Provider Internal Medicine Gastroenterology
PROC: 0DJ08ZZ Inspection of Upper Intestinal Tract, Via Natural or Artificial Opening Endoscopic (ICD-10-PCS; CPT 43235; principal; 2023-12-07 14:30)
DX: K29.50 Unspecified chronic gastritis without bleeding (principal); K22.2 Esophageal obstruction; K44.9 Diaphragmatic hernia without obstruction or gangrene; J45.20 Mild intermittent asthma, uncomplicated; J44.9 Chronic obstructive pulmonary disease, unspecified; E78.5 Hyperlipidemia, unspecified; E55.9 Vitamin D deficiency, unspecified; Z79.51 Long term (current) use of inhaled steroids; E66.9 Obesity, unspecified; Z68.31 Body mass index [BMI] 31.0-31.9, adult
CPT/HCPCS: 43249; 43239; 88305; C1726; J2704; J7120

== ENCOUNTER 2024-03-22 14:53 | Outpatient (CLI) | payer OTHER, SELFPAY ==
--- NOTE | ~2024-03-22 | MM_ITS ---
EXAMINATION: MM screening roderick BI w dylan HISTORY: Screening TECHNIQUE: Craniocaudal and mediolateral oblique 3-D tomosynthesis images were obtained and synthetic 2-D images were generated. CAD analysis was submitted and interpreted. COMPARISON: Comparison to multiple prior studies sequentially, with oldest reviewed study dated 07/29. BREAST PARENCHYMAL COMPOSITION: Not dense: There are scattered areas of fibroglandular density. FINDINGS: There is no evidence of suspicious mass, calcification, or architectural distortion to sugg est malignancy in either breast. There has been no suspicious interval change. IMPRESSION: 1. No mammographic evidence of malignancy. 2. Recommend routine screening mammography in one year. BI-RADS Category 1: Negative Reviewed, dictated and finalized at location B.
== END 2024-03-22 14:54 | disposition home or self-care (01) ==
LOC: ANHIMG 14:54
PROVIDERS: PCP Emergency Medicine; Visit Provider Emergency Medicine
DX: Z12.31 Encounter for screening mammogram for malignant neoplasm of breast (principal)
CPT/HCPCS: 77063; 77067

== ENCOUNTER 2024-04-21 12:45 | Emergency (ER) | payer OTHER, SELFPAY ==
[2024-04-21 13:10] VITALS: BP 148/82; PULSE 67; RESP 16; TEMP 36.6; O2SAT 98
--- NOTE | 2024-04-21 13:17 | ED.FEMALEGU ---
HPI - Female Genitourinary General Chief complaint: Urogenital-Female Stated complaint: Urinary issue Time Seen by Provider: 04/21/24 13:17 Source: patient, RN notes reviewed and old records reviewed Mode of arrival: ambulatory Limitations: no limitations History of Present Illness HPI Narrative: Patient presents with complaints of 5 day history of urinary frequency and burning. She reports that she has been drinking cranberry juice and taking azo in an effort to stop her symptoms. She reports that she has good relief intermittently, but now she is feeling a lack of energy along with her urinary frequency and burning. She reports occasional back pain and feeling of heaviness in the lower abdomen. She denies any nausea or vomiting. She denies any fever, chills, sweats. Related Data Home Medications Medication Instructions Recorded Confirmed FiberWell 4 g PO 11/29/23 04/21/24 albuterol sulfate 90 mcg/actuation See Rx Instructions .Route 11/29/23 04/21/24 aerosol inhaler .COMPLEX PRN Shortness Of Breath Or Wheezing apple cider vinegar 1 gummy BYMOUTH [facility] 11/29/23 04/21/24 biotin 5,000 mcg chewable tablet 5,000 mcg PO [facility] 11/29/23 04/21/24 calcium carbonate-vitamin D3 500 1 cap PO 11/29/23 04/21/24 mg (1,250 mg)-50 unit capsule diphenhydramine 25 1 tablet PO 11/29/23 04/21/24 mg-acetaminophen 500 mg tablet (Acetaminophen PM) fluticasone 250 mcg-salmeterol 50 See Rx Instructions .Route 11/29/23 04/21/24 mcg/dose blistr powdr for .COMPLEX PRN Shortness Of Breath inhalation (Wixela Inhub) Or Wheezing fluticasone propionate 50 See Rx Instructions .Route 11/29/23 04/21/24 mcg/actuation nasal .COMPLEX PRN allergies spray,suspension ibuprofen 200 mg tablet (Advil) 400 mg PO [facility] 11/29/23 04/21/24 magnesium oxide 420 mg tablet 420 mg PO 11/29/23 04/21/24 melatonin 10 mg tablet 10 mg PO 11/29/23 04/21/24 turmeric root-kelsey root ext 1 cap PO 11/29/23 04/21/24 clobetasol 0.05 % scalp solution See Rx Instructions .Route .COMPLEX 04/21/24 04/21/24 finasteride 5 mg tablet 5 mg PO DAILY 04/21/24 04/21/24 Allergies Allergy/AdvReac Type Severity Reaction Status Date / Time Sulfa (Sulfonamide AdvReac Mild Nausea Verified 04/21/24 12:48 Antibiotics) Review of Systems Review of Systems: All systems reviewed & are unremarkable except as noted in HPI and below Constitutional: Constitutional: Reports no additional constitutional complaints and Reports lethargy ENT: Reports system reviewed and no additional complaints, except as documented Cardiovascular: Cardiovascular: Reports no additional cardiovascular complaints Respiratory: Respiratory: Reports no additional respiratory complaints Gastrointestinal: Gastrointestinal: Reports no additional gastrointestinal complaints Genitourinary: Genitourinary: Reports no additional female genitourinary complaints, Reports as per HPI, Reports dysuria and Reports urinary urgency [facility] Past Medical History Medical History Acute cystitis without hematuria Acute recurrent frontal sinusitis Anxiety Cataract Chronic diarrhea COPD (chronic obstructive pulmonary disease) COVID-19 Dysuria Fatigue GERD (gastroesophageal reflux disease) HLD (hyperlipidemia) Hyperglycemia Mild intermittent asthma with exacerbation Otalgia of both ears Perforated ear drum Postmenopausal Rhinosinusitis Right ear impacted cerumen Sarcoidosis Sinus congestion URI with cough and congestion Vitamin D deficiency Surgical History Surgical History History of partial hysterectomy Family History Family History Mother Cerebrovascular accident, Onset Age: 93 Sibling Malignant neoplasm of prostate Father Family history of diabetes mellitus in first degree relative, Onset Age: 76 Social History Social History Smoking status: Never smoker Alcohol intake: current Substance use: never Substance use type: does not use Current Housing: Decline to Answer Concerned About Future Housing: Decline to Answer Difficulty Paying Gas/Electric Bills: Decline to Answer Difficulty Paying for Meds: Decline to Answer Currently Unemployed: Decline to Answer Education: Decline to Answer Difficulty w/ Childcare or Family Care: Decline to Answer Living arrangements: with family Spiritual care concerns: No Comments At the time of my signature, I reviewed and agree with the nursing past medical, surgical, social, and family history. There is no relevant family history pertinent to the patient complaint. Exam Const: General: cooperative, no acute distress, alert and awake Orientation/consciousness: oriented to person, oriented to place and oriented to time HENMT: Head: normal to inspection Resp: Effort & Inspection: normal respiratory effort and able to speak in complete sentences Auscultation: clear to auscultation bilaterally, no crackles, no rales, no rhonchi and no wheezes Cardio: Palpation: normal PMI Rate: regular rate Rhythm: regular rhythm Heart sounds: S1 normal heart sound present and S2 normal heart sound present Back/Spine/Pelvis: Back: no CVA tenderness Neuro: General: oriented to person, oriented to place and oriented to time Cranial nerves: Yes CN's II-XII intact bilaterally Psych: Appearance: grossly normal Thought process: Normal thought process present Insight: Good insight present (Psych) Judgement: Good judgement present (Psych) Course Course Level of Care: Express Care Visit Vital Signs Vital signs: Vital Signs Temperature 97.9 F 04/21/24 13:10 Pulse Rate 67 04/21/24 13:10 Respiratory Rate 16 04/21/24 13:10 Blood Pressure 148/82 H 04/21/24 13:10 Pulse Oximetry 98 04/21/24 13:10 Oxygen Delivery Room Air 04/21/24 13:10 Temperature 97.9 F 04/21/24 13:10 Pulse Rate 67 04/21/24 13:10 Respiratory Rate 16 04/21/24 13:10 Blood Pressure 148/82 H 04/21/24 13:10 Pulse Oximetry 98 04/21/24 13:10 Oxygen Delivery Room Air 04/21/24 13:10 Reviewed MDM - Female Genitourinary MDM Narrative Medical decision making narrative: Patient nontoxic appearing. No CVA tenderness. Nontoxic appearing, start treatment with Macrobid while culture is pending. Discharge instructions reviewed with patient, as well as provided in writing per nursing staff. The instructions also include specific and strict return/GO TO THE ER as well as f/u information. All questions have been answered, and the patient deny any further questions with discharge and discharge plan. Some parts of this dictation were generated by voice recognition software and may contain typographical and/or grammatical inaccuracies. Differential Diagnosis Differential diagnosis: Likely urinary tract infection and cystitis Medical Records Attestation: I reviewed the patient's medical records. Lab Data Attestation: I reviewed the patient's lab results. Discharge Plan Discharge Clinical Impression: Urinary tract infection Patient Disposition: Home, Self-Care Condition: Stable Instructions: Antibiotic Form, Urinary Tract Infection in Women (ED) Additional Instructions: Take all medications as prescribed. Follow-up with primary care provider. Emergency department for new or worse symptoms Patient Language: Scottish Prescriptions: New nitrofurantoin monohyd/m-cryst [Macrobid] 100 mg capsule 100 mg PO Q12H 5 Days Qty: 10 0RF Rx Instructions: must administer with a meal/food No Action clobetasol 0.05 % solution See Rx Instructions .ROUTE .COMPLEX Rx Instructions: Rx finasteride 5 mg tablet 5 mg PO DAILY omeprazole 20 mg capsule,delayed release(DR/EC) 20 mg PO DAILY Qty: 30 6RF Viberzi 75 mg tablet 75 mg PO BID Qty: 60 3RF Rx Instructions: must administer with a meal/food Zepbound 2.5 mg/0.5 mL pen injector 2.5 mg subcut WEEKLY Qty: 2 0RF Rx Instructions: for 4 weeks atorvastatin 10 mg tablet See Rx Instructions .ROUTE .COMPLEX Qty: 90 2RF Dose Instruction: TAKE 1 TABLET BY MOUTH EVERY DAY Rx Instructions: TAKE 1 TABLET BY MOUTH EVERY HS famotidine 40 mg tablet See Rx Instructions .ROUTE .COMPLEX Qty: 90 2RF Dose Instruction: TAKE 1 TABLET BY MOUTH EVERY DAY Rx Instructions: TAKE 1 TABLET BY MOUTH EVERY HS sertraline 50 mg tablet See Rx Instructions .ROUTE .COMPLEX Qty: 90 2RF Dose Instruction: TAKE 1 TABLET BY MOUTH EVERY DAY Rx Instructions: TAKE 1 TABLET BY MOUTH EVERY DAY magnesium oxide 420 mg Tablet 420 mg PO HS ibuprofen [Advil] 200 mg Tablet 400 mg PO QAM diphenhydramine-acetaminophen [Acetaminophen PM] 25-500 mg Tablet 1 tablet PO HS Calcium With Vitamin D3 500 mg(1,250mg) -50 unit Capsule 1 cap PO HS melatonin 10 mg Tablet 10 mg PO HS biotin 5,000 mcg Tablet,Chewable 5,000 mcg PO QAM FiberWell 4 g PO HS apple cider vinegar 1 gummy BYMOUTH QAM turmeric root-kelsey root ext 1 cap PO HS fluticasone propion-salmeterol [Wixela Inhub] 250-50 mcg/dose blister with device See Rx Instructions .ROUTE .COMPLEX PRN (Reason: Shortness Of Breath Or Wheezing) Patient Comments: PT STATES ONLY NEEDS IN SPRING AND FALL WITH ALLERGIES Rx Instructions: INHALE ONE PUFF BY MOUTH TWICE A DAY IN THE MORNING AND IN THE EVENING ABOUT TWELVE HOURS APART albuterol sulfate 90 mcg/actuation HFA aerosol inhaler See Rx Instructions .ROUTE .COMPLEX PRN (Reason: Shortness Of Breath Or Wheezing) Rx Instructions: INHALE 2 PUFFS BY MOUTH FOUR TIMES DAILY NEEDED FOR SHORTNESS OF BREATH OR WHEEZING fluticasone propionate 50 mcg/actuation spray,suspension See Rx Instructions .ROUTE .COMPLEX PRN (Reason: allergies) Rx Instructions: SPRAY 1 TO 2 SPRAYS IN EACH NOSTRIL ONCE A DAY NEEDED FOR ALLERGY SYMPTOMS valacyclovir 500 mg tablet See Rx Instructions .ROUTE .COMPLEX Qty: 180 2RF Dose Instruction: TAKE 1 TABLET BY MOUTH TWICE A DAY Rx Instructions: TAKE 1 TABLET BY MOUTH TWICE A DAY alprazolam 0.5 mg tablet 0.5 mg PO QHS Qty: 30 0RF Follow-up/Referrals: Dominic Chen MD [Primary Care Provider] - 1 Week Time of Disposition: 13:25
[2024-04-23 10:04] LABS: EDUAAPPEAR Clear; EDUABILI Negative (Negative); EDUABLOOD Negative (Negative); EDUACOLOR1 Orange; EDUAGLUCOSE Trace (Negative); EDUAKETONE Negative (Negative); EDUALEUKO Negative (Negative); EDUANITRATE Positive (Negative); EDUAPH 5.5; EDUAPROTEIN Negative (Negative); EDUASPGRAVITY 1.015; EDUAUROBILI 0.2
== END 2024-04-21 13:29 | disposition home or self-care (01) ==
PROVIDERS: Emergency Provider Nurse Practitioner Family; PCP Emergency Medicine
DX: N39.0 Urinary tract infection, site not specified (principal); B96.20 Unspecified Escherichia coli [E. coli] as the cause of diseases classified elsewhere; J44.9 Chronic obstructive pulmonary disease, unspecified; K21.9 Gastro-esophageal reflux disease without esophagitis; E78.5 Hyperlipidemia, unspecified; J45.909 Unspecified asthma, uncomplicated; E55.9 Vitamin D deficiency, unspecified
CPT/HCPCS: 81003; 87086; 87186; 99213; G0463

== ENCOUNTER 2024-11-19 11:52 | Emergency (ER) | payer OTHER, SELFPAY ==
--- NOTE | 2024-11-19 11:56 | ED_ITS ---
HPI - Skin/Abscess/Foreign Bdy General Chief complaint: Skin/Abscess/Foreign Body Stated complaint: Rash Time Seen by Provider: 11/19/24 11:56 Source: patient Mode of arrival: ambulatory Limitations: no limitations History of Present Illness HPI narrative: Patient is an 79 year old female who presents to the clinic with complaints of a rash to her left hip since last night. She states that the rash is more itchy than painful. She is not taking anything over the counter. She does take Valtrex daily because she is prone to shingles in her eye, but has never had it anywhere else. Denies using any new products. Related Data Home Medications ?Medication ?Instructions ?Recorded ?Confirmed ?Last Taken ?Type albuterol sulfate 90 mcg/actuation See Rx Instructions .Route 11/29/23 07/31/24 Unknown History aerosol inhaler .COMPLEX PRN Shortness Of Breath Or Wheezing fluticasone 250 mcg-salmeterol 50 See Rx Instructions .Route 11/29/23 07/31/24 Unknown History mcg/dose blistr powdr for .COMPLEX PRN Shortness Of Breath inhalation (Wixela Inhub) Or Wheezing clobetasol 0.05 % scalp solution See Rx Instructions .Route .COMPLEX 04/21/24 07/31/24 Unknown History finasteride 5 mg tablet 5 mg PO DAILY 04/21/24 07/31/24 Unknown History Allergies Allergy/AdvReac Type Severity Reaction Status Date / Time Sulfa (Sulfonamide AdvReac Mild Nausea Verified 11/19/24 12:07 Antibiotics) Review of Systems Review of Systems: CONSTITUTIONAL: Denies body aches, fever, chills, or sweats. EYES: Denies visual changes, redness, or discharge. ENT: Denies rhinorrhea, congestion CARDIOVASCULAR: Denies chest pain, palpitations, or edema. RESPIRATORY: Denies cough or dyspnea. GASTROINTESTINAL: Denies abdominal pain, nausea, vomiting, or diarrhea. SKIN: ?Reports a rash to her left hip. MUSCULOSKELETAL: Denies back pain, joint pain, or myalgia. NEUROLOGIC: Denies headache, numbness, tingling, or weakness. All systems reviewed & are unremarkable except as noted in HPI and below PMFSH Past Medical History Medical History Dysuria Bronchitis Dysuria Fatigue Cataract Hyperglycemia Vitamin D deficiency Sinus congestion Sarcoidosis Right ear impacted cerumen Rhinosinusitis Postmenopausal Otalgia of both ears Mild intermittent asthma with exacerbation Anxiety Acute recurrent frontal sinusitis Acute cystitis without hematuria Perforated ear drum URI with cough and congestion COVID-19 Chronic diarrhea COPD (chronic obstructive pulmonary disease) GERD (gastroesophageal reflux disease) HLD (hyperlipidemia) Surgical History Surgical History History of partial hysterectomy Family History Family History Mother Cerebrovascular accident, Onset Age: 93 Sibling Malignant neoplasm of prostate Father Family history of diabetes mellitus in first degree relative, Onset Age: 76 Social History Social History Smoking status: Never smoker Alcohol intake: current Substance use: never Substance use type: does not use Current Housing: Decline to Answer Concerned About Future Housing: Decline to Answer Difficulty Paying Gas/Electric Bills: Decline to Answer Difficulty Paying for Meds: Decline to Answer Currently Unemployed: Decline to Answer Education: Decline to Answer Difficulty w/ Childcare or Family Care: Decline to Answer Living arrangements: with family Spiritual care concerns: No Comments At time of signature, I have reviewed and agree with nursing past medical, surgical, social and family history unless otherwise noted. Please see nursing chart for further information. There is no relevant family history pertinent to the presenting complaint. Exam Narrative: GENERAL: Well-appearing HEAD: Normocephalic, atraumatic. EYES: ?conjunctivae clear, and EOMI. ENT: Mucous membranes moist. Oropharynx without edema, erythema or lesions. NECK: Supple. No lymphadenopathy CHEST: Clear to auscultation. HEART: Regular rate and rhythm. SKIN: Warm, dry. Multiple tiny scabbed lesions on an erythematous base to the left lateral hip. Dry. Without fluctuance or induration. ?Nontender to palpation. NEURO: ?Alert and oriented x3.? Course Course Level of Care: Express Care Visit Vital Signs Vital signs: Reviewed MDM - Skin/Abscess/Foreign Bdy MDM Narrative Medical decision making narrative: Discussed physical exam findings. Etiology insect bite vs scabbed contact dermatitis. Will treat with triamcinolone for pruritus. Patient agreeable to plan. Advised supportive measures and signs/symptoms to go to the ER. Pt is appropriate for outpatient treatment and follow up. Differential Diagnosis Differential diagnosis: Likely cellulitis, eczema, insect bites and contact dermatitis Critical Care Time Critical Care Time Critical Care Time: No Discharge Plan Discharge Clinical Impression: Dermatitis Patient Disposition: Home Condition: Stable Instructions: Dermatitis (ED) Additional Instructions: Use triamcinolone as prescribed. The most important part of your care is to follow up with Primary care provider. Avoid hot showers, Take cool showers. Wash the area with gentle soap and water only. Avoid scratching when possible to prevent worsening of the condition and disruption of the skin that could lead to bacterial infection To relieve itching, place a cool washcloth or some ice over the area that itches, rather than scratching Follow up with primary care provider or seek ER if you have trouble breathing, become hoarse, or start wheezing, develop belly cramps, vomiting or feel dizzy. Patient Language: Yemeni Prescriptions: New triamcinolone acetonide 0.1 % cream 1 applic topical BID Qty: 30 0RF No Action clobetasol 0.05 % solution See Rx Instructions .ROUTE .COMPLEX Rx Instructions: Rx finasteride 5 mg tablet 5 mg PO DAILY atorvastatin 10 mg tablet See Rx Instructions .ROUTE .COMPLEX Qty: 90 2RF Dose Instruction: TAKE 1 TABLET BY MOUTH EVERY DAY Rx Instructions: TAKE 1 TABLET BY MOUTH EVERY HS sertraline 50 mg tablet See Rx Instructions .ROUTE .COMPLEX Qty: 90 2RF Dose Instruction: TAKE 1 TABLET BY MOUTH EVERY DAY Rx Instructions: TAKE 1 TABLET BY MOUTH EVERY DAY fluticasone propion-salmeterol [Wixela Inhub] 250-50 mcg/dose blister with device See Rx Instructions .ROUTE .COMPLEX PRN (Reason: Shortness Of Breath Or Wheezing) Patient Comments: PT STATES ONLY NEEDS IN SPRING AND FALL WITH ALLERGIES Rx Instructions: INHALE ONE PUFF BY MOUTH TWICE A DAY IN THE MORNING AND IN THE EVENING ABOUT TWELVE HOURS APART albuterol sulfate 90 mcg/actuation HFA aerosol inhaler See Rx Instructions .ROUTE .COMPLEX PRN (Reason: Shortness Of Breath Or Wheezing) Rx Instructions: INHALE 2 PUFFS BY MOUTH FOUR TIMES DAILY NEEDED FOR SHORTNESS OF BREATH OR WHEEZING omeprazole 20 mg capsule,delayed release(DR/EC) See Rx Instructions .ROUTE .COMPLEX Qty: 90 2RF Dose Instruction: TAKE 1 CAPSULE BY MOUTH EVERY DAY Rx Instructions: TAKE 1 CAPSULE BY MOUTH EVERY DAY valacyclovir 500 mg tablet See Rx Instructions .ROUTE .COMPLEX Qty: 180 2RF Dose Instruction: TAKE 1 TABLET BY MOUTH TWICE A DAY Rx Instructions: TAKE 1 TABLET BY MOUTH TWICE A DAY alprazolam 0.5 mg tablet 0.5 mg PO QHS Qty: 30 0RF Zepbound 10 mg/0.5 mL solution See Rx Instructions .ROUTE .COMPLEX Qty: 2 2RF Dose Instruction: INJECT 0.5 ML (10 MG) UNDER THE SKIN ONCE WEEKLY (0.5ML= 50 UNITS) Rx Instructions: INJECT 0.5 ML (10 MG) UNDER THE SKIN ONCE WEEKLY (0.5ML= 50 UNITS) Follow-up/Referrals: Dominic Chen MD [Primary Care Provider] - Time of Disposition: 12:20
[2024-11-19 12:01] VITALS: BP 131/68; PULSE 72; RESP 20; TEMP 36.7; O2SAT 98
== END 2024-11-19 12:42 | disposition home or self-care (01) ==
PROVIDERS: PCP Emergency Medicine
DX: L30.9 Dermatitis, unspecified (principal); E78.5 Hyperlipidemia, unspecified; J44.9 Chronic obstructive pulmonary disease, unspecified; K21.9 Gastro-esophageal reflux disease without esophagitis; Z86.16 Personal history of COVID-19
CPT/HCPCS: 99213; G0463

== ENCOUNTER 2025-01-03 14:41 | Outpatient (CLI) | payer OTHER, SELFPAY ==
--- NOTE | ~2025-01-03 | DEXA_ITS ---
Bone Density Report Name: JOHNATHON ROMANO Age: 79 Sex: Female Ethnicity: White Date of : 1945 Indication: postmenopausal; screening for osteoporosis; parental hip fracture; height loss; asthma or emphysema; hysterectomy; Referring Provider: RO FALK Study: Bone densitometry was performed. Exam Date: January 03, 2025 Accession number: [id number] Bone Density: Region BMD T-score Z-score Classification AP Spine(L1-L4) 0.979 -0.6 2.1 Normal Femoral Neck (Left) 0.641 -1.9 0.5 Osteopenia Total Hip (Left) 0.794 -1.2 0.9 Osteopenia Femoral Neck (Right) 0.579 -2.4 0.0 Osteopenia Total Hip (Right) 0.821 -1.0 1.2 Normal Total Hip Mean 0.807 -1.1 1.1 Osteopenia World Health Organization criteria for BMD impression classify patients as: Normal (T-score at or above -1.0), Osteopenia (T-score between -1.0 and -2.5), or Osteoporosis (T-score at or below -2.5). 10-year Fracture Risk(1): Major Osteoporotic Fracture 33% Hip Fracture 23% Reported Risk Factors: [place] (), Neck BMD=0.579, BMI=30.1, parental fracture (1) FRAX(R) Version 3.08. Fracture probability calculated for an untreated patient. Fracture probability may be lower if the patient has received treatment. Previous Exams: -- Region Exam Age BMD T-score BMD Change BMD Change Date g/cm2 vs Baseline vs Previous -- AP Spine (L1-L4) 01/03/2025 79 0.979 -0.6 -4.8%* 3.6%* 07/08/2020 75 0.944 -0.9 -8.1%* -8.1%* 11/15/2016 71 1.028 -0.2 Total Hip(Left) 01/03/2025 79 0.794 -1.2 -12.4%* -3.8%* 07/08/2020 75 0.825 -1.0 -9.0%* -9.0%* 11/15/2016 71 0.906 -0.3 Total Hip(Right) 01/03/2025 79 0.821 -1.0 -5.0%* -1.1% 07/08/2020 75 0.830 -0.9 -3.9%* -3.9%* 11/15/2016 71 0.864 -0.6 -- *Denotes significance at 95% confidence level, LSC for AP Spine = 0.022 g/cm2, LSC for Total Hip = 0.027 g/cm2 Clinical Information Provided by Patient: Parent has had a hip fracture Has used the following medications: HRT (i.e. estrogen/hormone therapy), Vitamin D, Calcium Has the following medical conditions: Asthma or Emphysema, Hysterectomy Patient maximum height was 66 Menopause Age: 28 Onset of menses at age 10 Number of children 3 Impression: The patient has low bone mass, based on the Right Femoral Neck T-score. The patient has an estimated ten-year risk of hip fracture of 23% and an estimated ten-year risk of major fracture of 33%, based on the WHO FRAX algorithm. The patient has risk factors, including: parental hip fracture. The BMD for the Total Hip(Left) decreased, changing by -3.8% since the last DXA exam. Discussion: BONE DENSITY IS LOW AT ONE OR MORE SKELETAL SITES. THE PATIENT'S BMD AND CLINICAL RISK FACTORS CONTRIBUTE TO THIS PATIENT'S HIGH RISK OF FRACTURE. This patient's lowest T-score is low at one or more skeletal sites. It meets the World Health Organization's (WHO) criteria for ?low bone mass? (T-score between -1.0 and -2.5). The patient's 10-year risk of hip fracture and 10 year risk of a major osteoporotic fracture as calculated by FRAX exceeds the threshold where pharmacological therapy is recommended by the National Osteoporosis Foundation (NOF). However, all treatment decisions require clinical judgment and consideration of individual patient factors, including patient preferences, comorbidities, previous drug use, risk factors not captured in the FRAX model (e.g., frailty, falls, vitamin D deficiency, increased bone turnover, interval significant decline in bone density) and possible under or overestimation of fracture risk by FRAX. The patient should follow a healthful lifestyle (good nutrition with adequate calcium and vitamin D, and appropriate weight-bearing exercise). Follow-Up: Consider a repeat BMD and Vertebral Fracture Assessment (VFA) exam in 2 years or sooner if medically necessary, to reassess this patient's status. Reported by: MIRNA on 01/03/2025 3:02:00 PM. Reviewed, dictated and finalized at location A.
== END 2025-01-03 14:42 | disposition home or self-care (01) ==
LOC: MICIMG 14:42
PROVIDERS: PCP Emergency Medicine; Visit Provider Emergency Medicine
DX: N95.9 Unspecified menopausal and perimenopausal disorder (principal); E55.9 Vitamin D deficiency, unspecified; M85.852 Other specified disorders of bone density and structure, left thigh; M85.851 Other specified disorders of bone density and structure, right thigh
CPT/HCPCS: 77080